=== PATIENT | female | born 1960 | race Hispanic/Latino ===

== ENCOUNTER 2022-02-24 23:18 | Observation (INO) | payer OTHER ==
[~2022-02-24] VITALS: Ht 157.5 cm; Wt 72.6 kg
[2022-02-25 00:33] LABS: APPEARANCE,URINE CLEAR (CLEAR); BILIRUBIN,URINE NEGATIVE (NEGATIVE); COLOR,URINE YELLOW (YELLOW); GLUCOSE, URINE (UA) 500 mg/dL (NEGATIVE); KETONES,URINE NEGATIVE (NEGATIVE); LEUKOCYTE ESTERASE ,URINE NEGATIVE (NEGATIVE); NITRATE,URINE NEGATIVE (NEGATIVE); OCCULT BLOOD,URINE NEGATIVE (NEGATIVE); PROTEIN,URINE 30 mg/dL (NEGATIVE); UROBILINOGEN,URINE 0.2 mg/dL (0.2-1.0)
[2022-02-25 00:55] LABS: BACTERIA,URINE None Seen /HPF (None Seen); MUCUS,URINE Few LPF (None Seen); RBC,URINE None Seen /HPF (0-1); SQUAMOUS EPITHELIAL CELL,UR Few /HPF (0-2); WBC,URINE None Seen /HPF (0-1)
[2022-02-25 03:02] LABS: HEMATOCRIT 40.4 % (36-48); LYMPHOCYTES % (AUTO) 36.7 % (21.0-51.0); MEAN CORPUSCULAR HEMOGLOBIN 30.9 pg (27.0-33.0); MEAN CORPUSCULAR HGB CONC 34.2 g/dL (32.0-36.0); MEAN CORPUSCULAR VOLUME 90.6 fL (79-99); MONOCYTES % (AUTO) 8.4 % (3.0-13.0); NEUTROPHILS % (AUTO) 50.8 % (40.0-77.0); PLATELET COUNT (AUTO) 238 K/uL (130-400); RED BLOOD CELL COUNT(AUTO) 4.46 MIL/uL (4.00-5.50); RED CELL DISTRIBUTION WIDTH 11.6 % (11.0-15.5); WHITE BLOOD COUNT (AUTO) 11.5 K/uL (4.8-10.8)
[2022-02-25 03:13] LABS: CREATININE 0.7 mg/dL (0.5-1.5); POTASSIUM 3.8 mmol/L (3.5-5.1)
[2022-02-25 03:26] LABS: ALBUMIN 3.7 g/dL (3.5-5.0); BILIRUBIN,TOTAL 0.4 mg/dL (0.2-1.0); TOTAL PROTEIN, SERUM 7.8 g/dL (6.0-8.3)
[2022-02-25] MEDS ORDERED: CLOPIDOGREL 300MG TAB PO ONE (04:00)
[2022-02-25] MEDS ORDERED: HEPARIN 5,000 UNIT VIAL IV ONE (04:00)
[2022-02-25] MEDS ORDERED: HEPARIN 25,000 UNITS/250ML D5W 250 ML IV SCH ×2 (04:00→20:30)
[2022-02-25 04:04] LABS: PROTHROMBIN TIME 10.9 SEC (9.6-11.6)
[2022-02-25] MEDS ORDERED: ASPIRIN 81MG CHEW TAB PO ONE (04:30)
[2022-02-25] MEDS: NITROGLYCERIN 1GM OINT 1 INCH/1GM TD SCH ×2 (04:30→21:04)
[2022-02-25] MEDS ORDERED: MORPHINE 2 MG SYG IV PRN (04:30)
[2022-02-25] MEDS ORDERED: MORPHINE 4 MG SYG IV PRN (04:30)
[2022-02-25] MEDS ORDERED: ACETAMINOPHEN 325 MG TAB PO PRN (04:30)
[2022-02-25] MEDS ORDERED: ONDANSETRON 4MG INJ IV PRN (04:30)
[2022-02-25 04:31] LABS: AMPHET/METH SCREEN,URINE NEGATIVE (NEGATIVE); BARBITURATE SCREEN, URINE NEGATIVE (NEGATIVE); BENZODIAZEPINES SCREEN,URINE NEGATIVE (NEGATIVE); CANNABINOID SCREEN,URINE NEGATIVE (NEGATIVE); COCAINE SCREEN,URINE NEGATIVE (NEGATIVE); OPIATE SCREEN,URINE NEGATIVE (NEGATIVE); PHENCYCLIDINE SCREEN,URINE NEGATIVE (NEGATIVE)
[2022-02-25] MEDS ORDERED: ALPRAZOLAM 0.5 MG TABLET PO PRN (05:00)
[2022-02-25 05:20] LABS: HEMOGLOBIN A1C 9.6 % (4.0-6.0)
[2022-02-25] MEDS ORDERED: HYDRALAZINE 20MG/ML VIAL IV ONE (05:30)
[2022-02-25] MEDS ORDERED: ALPRAZOLAM 0.25 MG TABLET PO PRN (05:30)
[2022-02-25] MEDS ORDERED: HYDRALAZINE 20MG/ML VIAL ONE (05:31)
[2022-02-25] MEDS ORDERED: ALPRAZOLAM 0.25 MG TABLET PO ONE ×2 (06:00)
[2022-02-25] MEDS ORDERED: ENOXAPARIN SODIUM 40 MG/0.4 ML SYRINGE SQ SCH (09:00)
[2022-02-25 10:07] LABS: CHOLESTEROL 234 mg/dL (<200); HDL CHOLESTEROL 62 mg/dL (35-85); LDL DIRECT 161 mg/dL (0-99); TRIGLYCERIDES 67 mg/dL (30-200)
[2022-02-25 10:28] LABS: INR 1.02 (0.85-1.15); PROTHROMBIN TIME 11.1 SEC (9.6-11.6)
[2022-02-25] MEDS: INSULIN HUMULIN R 100 UNIT/ML 3ML SQ SCH ×3 (11:30→21:06)
[2022-02-25 12:45] VITALS: BP 147/91
[2022-02-25 16:37] VITALS: BP 130/87
[2022-02-25 19:49] VITALS: BP 152/77
[2022-02-25] MEDS: METOPROLOL TARTRATE 25 MG TAB PO SCH (21:05)
[2022-02-25 23:55] VITALS: BP 108/61
[2022-02-26 03:42] LABS: BASOPHILS % (AUTO) 0.8 % (0.0-5.0); EOSINOPHILS % (AUTO) 3.4 % (0.0-8.0); HEMATOCRIT 38.1 % (36-48); LYMPHOCYTES % (AUTO) 39.6 % (21.0-51.0); MEAN CORPUSCULAR HEMOGLOBIN 30.8 pg (27.0-33.0); MEAN CORPUSCULAR HGB CONC 34.1 g/dL (32.0-36.0); MEAN CORPUSCULAR VOLUME 90.3 fL (79-99); MONOCYTES % (AUTO) 8.9 % (3.0-13.0); NEUTROPHILS % (AUTO) 46.9 % (40.0-77.0); PLATELET COUNT (AUTO) 230 K/uL (130-400); RED BLOOD CELL COUNT(AUTO) 4.22 MIL/uL (4.00-5.50); RED CELL DISTRIBUTION WIDTH 11.8 % (11.0-15.5); WHITE BLOOD COUNT (AUTO) 10.9 K/uL (4.8-10.8)
[2022-02-26 03:55] VITALS: BP 149/66
[2022-02-26 03:56] LABS: CREATININE 0.8 mg/dL (0.5-1.5); MAGNESIUM 2.3 mg/dL (1.80-2.40); PHOSPHORUS 4.8 mg/dL (2.5-4.9); POTASSIUM 3.6 mmol/L (3.5-5.1)
[2022-02-26] MEDS: NITROGLYCERIN 1GM OINT 1 INCH/1GM TD SCH (04:38)
[2022-02-26] MEDS: INSULIN HUMULIN R 100 UNIT/ML 3ML SQ SCH ×3 (06:30→17:03)
[2022-02-26 08:08] VITALS: BP 113/68
[2022-02-26] MEDS: FAMOTIDINE 20MG VIAL IV SCH ×2 (08:56→08:57)
[2022-02-26] MEDS: ASPIRIN 81MG CHEW TAB PO SCH ×2 (08:57→08:58)
[2022-02-26] MEDS: METOPROLOL TARTRATE 25 MG TAB PO SCH (08:59)
[2022-02-26] MEDS ORDERED: METO25 PO (09:35)
[2022-02-26] MEDS ORDERED: METF-444 PO (09:35)
[2022-02-26] MEDS ORDERED: ASPI-1005 PO (09:35)
[2022-02-26 13:07] VITALS: BP 137/68
[2022-02-26 17:29] VITALS: BP 146/68
[2022-02-26] MEDS ORDERED: HYDR-3421 PO (17:31)
[2022-02-26] MEDS ORDERED: TRAZ-185 PO (17:31)
== END 2022-02-27 00:10 | disposition home or self-care (01) ==
LOC: EDH 23:18 → EDHIP 02-25 04:07 → 4DH 02-25 09:25
PROVIDERS: ADMIT Hospitalist; ATTEND Hospitalist
DX: R07.89 Other chest pain (principal); F41.1 Generalized anxiety disorder; I25.10 Atherosclerotic heart disease of native coronary artery without angina pectoris; I63.9 Cerebral infarction, unspecified; I21.4 Non-ST elevation (NSTEMI) myocardial infarction; E11.9 Type 2 diabetes mellitus without complications; C90.00 Multiple myeloma not having achieved remission; R79.89 Other specified abnormal findings of blood chemistry; D72.829 Elevated white blood cell count, unspecified; I10 Essential (primary) hypertension; J45.909 Unspecified asthma, uncomplicated; G89.29 Other chronic pain; M79.602 Pain in left arm; Z63.4 Disappearance and death of family member; Z79.82 Long term (current) use of aspirin; Z86.73 Personal history of transient ischemic attack (TIA), and cerebral infarction without residual deficits; Z79.84 Long term (current) use of oral hypoglycemic drugs; Z79.899 Other long term (current) drug therapy
CPT/HCPCS: 36415 ×3; 71045; 80048; 80053; 80061; 80305; 81001; 82948 ×7; 83036; 83735; 84100; 84484 ×4; 85025 ×2; 85610 ×2; 85730 ×4; 93005 ×2; 93306; 93356; 96365; 96366 ×2; 96372 ×2; 96375 ×2; 96376; 99291; G0378 ×44; J0360; J1644 ×2; J1815 ×4; J2270; J3490